=== PATIENT | female | born 1945 | race Caucasian/White ===

== ENCOUNTER → 2018-08-10 | Outpatient (CLI) | payer OTHER ==
[~2018-08-10] MED LIST: ALPR0.25 PO; AMLO10TA4 PO; ATOR10TA PO; CYAN100T PO; CYCL-259 PO; CYCL5TAB PO; ERGO500017 PO; HYDR-3653 PO; HYDR25TA6 PO; LEVO750T26 PO; METO-99 PO; OMEP20CA9 PO; OXYC-302 PO; PARO30TA45 PO; POLY17PO5 PO; TRAM-47 PO; TRAM50TA2 PO; ZOLP-413 PO
== END | disposition home or self-care (01) ==
LOC: CFH 10:39
PROVIDERS: ATTEND Family Medicine
DX: R91.8 Other nonspecific abnormal finding of lung field (principal); R09.02 Hypoxemia
CPT/HCPCS: 71046

== ENCOUNTER → 2018-10-08 | Outpatient (CLI) | payer OTHER | END | disposition home or self-care (01) | LOC: CFH 11:57 | PROVIDERS: ATTEND Family Medicine | DX: J18.9 Pneumonia, unspecified organism (principal) | CPT/HCPCS: 71046 ==

== ENCOUNTER → 2020-06-05 | Outpatient (CLI) | payer MEDICARE, OTHER ==
[~2020-06-05] MED LIST changes: -CYAN100T PO; +CYAN100T2 PO
== END | disposition home or self-care (01) ==
LOC: RAD 16:57
PROVIDERS: ATTEND Family Medicine
DX: S00.83XA Contusion of other part of head, initial encounter (principal); M27.2 Inflammatory conditions of jaws; X58.XXXA Exposure to other specified factors, initial encounter; Y93.89 Activity, other specified; Y92.89 Other specified places as the place of occurrence of the external cause; Y99.8 Other external cause status
CPT/HCPCS: 70450

== ENCOUNTER 2020-06-12 18:04 | Emergency (ER) | payer OTHER ==
[~2020-06-12] VITALS: Ht 160 cm; Wt 79.2 kg
[~2020-06-12 18:04] MED LIST changes: -CYAN100T2 PO; +CYAN100T22 PO
[2020-06-12] MEDS ORDERED: ACETAMINOPHEN 500 MG TABLET PO ONE (18:30)
--- NOTE | 2020-06-12 18:38 | NUR ---
PT GOING TO CT AT THIS TIME.
[2020-06-12] MEDS ORDERED: ACETAMINOPHEN 500 MG TABLET ONE (18:54)
--- NOTE | 2020-06-12 19:01 | NUR ---
REPORT RECEIVED FROM TRISTEN CUNNINGHAM.
[2020-06-12 19:09] LABS: BASOPHILS # (AUTO) 0.04 x10^3/uL (0-0.1); BASOPHILS % (AUTO) 0 % (0-1); EOSINOPHILS # (AUTO) 0.11 x10^3/uL (0-0.4); EOSINOPHILS % (AUTO) 1 % (1-7); LYMPHOCYTES # (AUTO) 2.72 x10^3/uL (1-3.4); LYMPHOCYTES % (AUTO) 23 % (22-44); MD NO; MEAN CORPUSCULAR HEMOGLOBIN 30.4 pg (27.0-34.8); MEAN CORPUSCULAR HGB CONC 32.7 g/dL (32.4-35.8); MEAN PLATELET VOLUME 8.6 fL (7.4-10.4); MONOCYTES # (AUTO) 0.56 x10^3/uL (0.2-0.8); MONOCYTES % (AUTO) 5 % (2-9); NEUTROPHILS # (AUTO) 8.49 x10^3/uL (1.8-6.8); NEUTROPHILS % (AUTO) 71 % (42-75); PLATELET COUNT 265 x10^3/uL (130-400); RED CELL DISTRIBUTION WIDTH 14.4 % (9.6-15.2)
--- NOTE | 2020-06-12 19:14 | NUR ---
PT REPORTS CONTINUED VERONICA, WAS MEDICATED PER MAR. MONITORING IN PLACE, CALL LIGHT WITHIN REACH, ALL SAFETY MEASURES IN PLACE, FAMILY AT FOR SUPPORT. PT UPDATED ON POC.
[2020-06-12 19:23] LABS: ALBUMIN 3.6 g/dL (3.4-5.0); ANION GAP 8 mmol/L (5-15); CALCIUM 9.1 mg/dL (8.5-10.1); CHLORIDE 102 mmol/L (98-107); CREATININE 0.83 mg/dL (0.55-1.02)
[2020-06-12 20:06] VITALS: BP 183/74
== END 2020-06-12 20:25 | disposition home or self-care (01) ==
LOC: ED 20:03
DX: S00.83XA Contusion of other part of head, initial encounter (principal); S09.90XA Unspecified injury of head, initial encounter; I10 Essential (primary) hypertension; K21.9 Gastro-esophageal reflux disease without esophagitis; E78.00 Pure hypercholesterolemia, unspecified; W01.0XXA Fall on same level from slipping, tripping and stumbling without subsequent striking against object, initial encounter; Y93.89 Activity, other specified; Y92.89 Other specified places as the place of occurrence of the external cause; Y99.8 Other external cause status
CPT/HCPCS: 36415; 70450; 70486; 72125; 80048; 80307; 82040; 85025; 99285

== ENCOUNTER → 2020-08-15 | Outpatient (CLI) | payer OTHER | END | disposition home or self-care (01) | LOC: CFH 11:12 | PROVIDERS: ATTEND Family Medicine | DX: M25.542 Pain in joints of left hand (principal) ==